=== PATIENT | female | born 1955 | race Caucasian/White ===

== ENCOUNTER 2019-07-20 06:37 | Outpatient (REF) | payer BC, SELFPAY ==
[2019-07-20 08:02] LABS: Eosinophils # 0.1 10^3/uL (0.0-0.8); Hemoglobin 13.6 g/dL (11.5-15.3); Lymphocytes # 1.4 10^3/uL (0.8-4.8); Lymphocytes % 46.7 %; Mean Corpuscular HGB Conc 33.2 g/dL (30.0-36.0); Mean Corpuscular Hemoglobin 30.9 pg (28.0-34.0); Mean Corpuscular Volume 93.2 fL (81-99); Mean Platelet Volume 9.6 fL (7.4-10.4); Monocytes # 0.3 10^3/uL (0.2-0.9); Neutrophils # 1.2 10^3/uL (1.8-7.7); Neutrophils % 40.3 %; Nucleated Red Blood Cells % 0 %; Platelet Count 208 10^3/cmm (130-400); Red Cell Distribution Width 11.8 % (12.1-15.1)
[2019-07-20 09:41] LABS: Estmated Average Glucose 123; Hemoglobin A1C 5.9 % (4.0-6.0)
[2019-07-20 11:44] LABS: Chol HDL Ratio 5.38 mg/dL (0.0-4.40); Cholesterol 280 mg/dL (0-200); Glucose 89 mg/dL (65-115); HDL Cholesterol 52 mg/dL (60-100); LDL Cholesterol Calculated 212 mg/dL (50-129); LDL HDL Ratio 4.08 RATIO (0.00-3.22); Triglycerides 82 mg/dL (0-150)
== END 2019-07-20 06:38 | disposition home or self-care (01) ==
LOC: LAB 06:37
PROVIDERS: Family Provider Family Medicine; Visit Provider Dermatology
DX: Z01.89 Encounter for other specified special examinations (principal)
CPT/HCPCS: 80061; 82947; 83036; 85025

== ENCOUNTER 2019-08-13 09:40 | Outpatient (CLI) | payer BC, SELFPAY ==
--- NOTE | 2019-08-13 09:50 | XR_ITS ---
WS: [id number] XR knee RT 3V* [id number] REASON FOR EXAM: PAIN IN RIGHT KNEE FINDINGS: The medial and lateral menisci appear to be normal. The patellofemoral articulation normal. Patella tibial space is normal. Patella seems to be in normal position. No fractures are noted in the knee. XR/XR knee RT 3V* 20209 IMPRESSION: Negative right knee for acute findings.
== END 2019-08-13 09:41 | disposition home or self-care (01) ==
LOC: RAD 09:47
PROVIDERS: Family Provider Family Medicine; PCP Family Medicine; Visit Provider Family Medicine
DX: M25.561 Pain in right knee (principal)
CPT/HCPCS: 73562

== ENCOUNTER 2020-02-22 16:18 | Observation (INO) | payer BC, SELFPAY ==
[2020-02-22 16:35] VITALS: PULSE 64; RESP 19; O2SAT 98; BMI 21.9
--- NOTE | 2020-02-22 16:49 | ED_ITS ---
Documented by User: Jorge Baltazar DO 02/26/20 06:32 HPI - Chest Pain General: Chief Complaint: Chest Pain Stated Complaint: cp Time Seen by Provider: 02/22/20 16:49 History of Present Illness: HPI narrative: 64-year-old female presents with complaint of chest pain she reports the pain in the center of her chest which she also has tingling in her arms and legs she is tachypneic when I came in the room she is complaining of myalgias throughout as well she has had nausea vomiting and diarrhea this began earlier today. She is not had any productive cough. She denies any respiratory symptoms she denies any known exposure to COVID she denies any chronic respiratory illness she has no history of coronary artery disease is not previously had an evaluation. MD complaint: chest pain Onset (ago): minute(s) Timing of current episode: episodic, increasing and still present Onset: during rest Pain location: substernal Pain radiation: right arm, left arm and other (Bilateral lower extremities) Severity: moderate Quality: heaviness Relieving factors: nothing Exacerbating factors: nothing Associated symptoms: Reports dyspnea, nausea, sense of impending doom and vomiting; Deny abdominal pain, diaphoresis, fever(s), leg edema, palpitations or syncope Treatment prior to arrival: none Review of Systems Const: Denies: fever(s) or diaphoresis ENMT: Denies: throat pain, ear or mastoid pain, nasal discharge or nasal congestion Card: Denies: palpitations or syncope Resp: Reports: dyspnea GI: Reports: nausea and vomiting; Denies: abdominal pain : Denies: flank pain, difficulty voiding, dysuria, urinary frequency or urinary urgency Skin/Breast: Denies: rash or pruritus PFSH ED PFSH: Medical History No significant past medical history Surgical History H/O foot surgery H/O tubal ligation Family History Family/Other Diabetes multiple family members including parents, siblings Social History Smoking and tobacco status: never smoked Alcohol intake: never Substance/Drug Use: never Household members: spouse Marital status: Current occupational status: employed 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 Physical Exam Const: COMMON NORMALS: no acute distress GENERAL APPEARANCE: cooperative and comfortable ORIENTATION/CONSCIOUSNESS: Yes awake, Yes oriented to person, Yes oriented to place and Yes oriented to time HENMT: COMMON NORMALS: normocephalic, atraumatic and hearing grossly normal bilaterally HEAD & SCALP: normocephalic and atraumatic Eye: COMMON NORMALS: Equal, round and reactive pupils present, EOMs intact bilaterally, conjunctivae normal and no scleral icterus CONJUNCTIVA: Yes conjunctivae normal PUPIL: Yes Equal, round and reactive pupils present Neck/C-Spine: COMMON NORMALS: full ROM, no lymphadenopathy, supple and no JVD Lymph: LYMPHATIC: no lymphadenopathy noted and no lymphedema noted Resp: COMMON NORMALS: normal respiratory effort, No retractions, No use of accessory muscles and clear to auscultation bilaterally AUSCULTATION: clear to auscultation bilaterally Cardio: COMMON NORMALS: no JVD, regular rate, regular rhythm and No murmurs present (Cardio) RATE: regular rate RHYTHM: regular rhythm GI: COMMON NORMALS: Soft to palpation and No hepatosplenomegaly present AUSCULTATION: Yes normoactive bowel sounds PALPATION: Yes Soft to palpation, No Tenderness to palpation present (GI), No Guarding due to palpation present (GI) and Yes No hepatosplenomegaly present Extremity: COMMON NORMALS: normal to inspection, capillary refill normal, no clubbing, cyanosis or edema, no calf tenderness and no pedal edema Neuro: SENSORIUM/ORIENTATION: Yes oriented to person, Yes oriented to place and Yes oriented to time Skin: COMMON NORMALS: no rashes or lesions noted GENERAL SKIN EXAM: no rashes or lesions noted Course Vital Signs: Vital signs: Vital Signs Temperature 98.4 F 02/24/20 12:16 Pulse Rate 55 L 02/24/20 12:16 Respiratory Rate 18 02/24/20 12:16 Blood Pressure 122/49 02/24/20 12:16 Pulse Oximetry 94 02/24/20 12:16 MDM - Chest Pain MDM Narrative: Medical decision making narrative: Care turned over to Dr. Hernandez at change of shift. Lab Data: Labs: Lab Results 02/22/20 02/22/20 02/22/20 Range/Units 17:07 17:07 17:07 WBC 5.6 (4.0-10.0) 10^3/ uL RBC 3.99 L (4.1-5.3) 10^6/u L Hgb 12.7 (11.5-15.3) g/dL Hct 37.2 (37.0-47.0) % MCV 93.2 (81-99) fL MCH 31.8 (28.0-34.0) pg MCHC 34.1 (30.0-36.0) g/dL RDW 11.7 L (12.1-15.1) % Plt Count 202 (130-400) 10^3/c mm MPV 10.0 (7.4-10.4) fL Neut % (Auto) 74.7 % Lymph % (Auto) 17.5 % [place] % (Auto) 6.5 % Eos % (Auto) 0.4 % Baso % (Auto) 0.7 % Neut # (Auto) 4.15 (1.8-7.7) 10^3/u L Lymph # (Auto) 1.0 (0.8-4.8) 10^3/u L [place] # (Auto) 0.4 (0.2-0.9) 10^3/u L Eos # (Auto) 0.0 (0.0-0.8) 10^3/u L Baso # (Auto) 0.0 (0.0-0.1) 10^3/u L Nucleated RBC % (a uto) 0 % Nucleated RBCs # 0.0 /100WBC Fibrinogen (174-498) mg/dL D-Dimer (0-0.59) ug/mIFE U Specimen Type Sample Site ABG pH (7.35-7.45) ABG pCO2 (35-45) mmHg ABG pO2 (80.0-100.0) mmH g ABG HCO3 (22-26) mmol/L ABG O2 Saturation ABG Base Excess (-2.0-2.0) mmol/ L Mike Test A-a O2 Gradient (5-10) mmHg Hematocrit (37-47) % Hgb O2 Saturation (95-100) % Carboxyhemoglobin (0.4-20.1) %THgb Methemoglobin (0.4-1.5) % Total Hemoglobin (12-16) g/dL Ionized Calcium (1.1-1.4) mmol/L O2 Delivery Device FiO2 % Document Specialist ID Sodium 127 L (136-145) mmol/L Potassium 4.0 (3.5-5.1) mmol/L Chloride 91 L (98-107) mmol/L Carbon Dioxide 22 (22-29) mmol/L Anion Gap 18.0 (5-19) BUN 13 (8-23) mg/dL Creatinine 0.6 (0.5-0.9) mg/dL GFR Calculation 101.0 (90-130) mL/min Glucose 133 H (65-115) mg/dL Calculated Osmolal ity 262 L (285-295) mOsm/k g Lactic Acid (0.5-2.2) mmol/L Calcium 8.8 (8.5-10.5) mg/dL Magnesium (1.7-2.3) mg/dL Ferritin 214 H (15-150) ng/mL Total Bilirubin 0.8 (0.15-1.2) mg/dL AST 24 (0-32) U/L ALT 21 (0-33) U/L Alkaline Phosphata se 65 (35-105) IU/L Lactate Dehydrogen ase 208 (135-214) U/L Creatine Kinase 109 (26-192) U/L Troponin T Baselin e 10 (0-10) ng/L Troponin T 120 Min [place] (0-10) ng/L Delta Troponin T (0-10) ABS# C-Reactive Protein 0.5 (0.0-4.9) mg/L Total Protein 7.1 (6.6-8.7) g/dL Albumin 4.6 (3.5-5.2) g/dL Globulin 2.5 (1.3-4.6) g/dL Lipase (13-60) U/L Urine Color (Yellow) Urine Appearance (CLEAR) Urine pH (5-7) Ur Specific Gravit y (1.005-1.030) Urine Protein (Negative) Urine Glucose (UA) (Normal) Urine Ketones (Negative) Urine Blood (Negative) Urine Nitrate (Negative) Urine Bilirubin (Negative) Urine Urobilinogen (Negative) mg/dL Ur Leukocyte Joan ase (Negative) Serum Ketones (Negative) SARS-CoV-2 RNA (RT -PCR) (NOT DETECTED) SARS-CoV-2 Ag (Rap id) (Negative) 02/22/20 02/22/20 02/22/20 Range/Units 17:07 17:07 17:18 WBC (4.0-10.0) 10^3/ uL RBC (4.1-5.3) 10^6/u L Hgb (11.5-15.3) g/dL Hct (37.0-47.0) % MCV (81-99) fL MCH (28.0-34.0) pg MCHC (30.0-36.0) g/dL RDW (12.1-15.1) % Plt Count (130-400) 10^3/c mm MPV (7.4-10.4) fL Neut % (Auto) % Lymph % (Auto) % [place] % (Auto) % Eos % (Auto) % Baso % (Auto) % Neut # (Auto) (1.8-7.7) 10^3/u L Lymph # (Auto) (0.8-4.8) 10^3/u L [place] # (Auto) (0.2-0.9) 10^3/u L Eos # (Auto) (0.0-0.8) 10^3/u L Baso # (Auto) (0.0-0.1) 10^3/u L Nucleated RBC % (a uto) % Nucleated RBCs # /100WBC Fibrinogen 291 (174-498) mg/dL D-Dimer 0.32 (0-0.59) ug/mIFE U Specimen Type Sample Site ABG pH (7.35-7.45) ABG pCO2 (35-45) mmHg ABG pO2 (80.0-100.0) mmH g ABG HCO3 (22-26) mmol/L ABG O2 Saturation ABG Base Excess (-2.0-2.0) mmol/ L Mike Test A-a O2 Gradient (5-10) mmHg Hematocrit (37-47) % Hgb O2 Saturation (95-100) % Carboxyhemoglobin (0.4-20.1) %THgb Methemoglobin (0.4-1.5) % Total Hemoglobin (12-16) g/dL Ionized Calcium (1.1-1.4) mmol/L O2 Delivery Device FiO2 % Document Specialist ID Sodium (136-145) mmol/L Potassium (3.5-5.1) mmol/L Chloride (98-107) mmol/L Carbon Dioxide (22-29) mmol/L Anion Gap (5-19) BUN (8-23) mg/dL Creatinine (0.5-0.9) mg/dL GFR Calculation (90-130) mL/min Glucose (65-115) mg/dL Calculated Osmolal ity (285-295) mOsm/k g Lactic Acid 1.6 (0.5-2.2) mmol/L Calcium (8.5-10.5) mg/dL Magnesium (1.7-2.3) mg/dL Ferritin (15-150) ng/mL Total Bilirubin (0.15-1.2) mg/dL AST (0-32) U/L ALT (0-33) U/L Alkaline Phosphata se (35-105) IU/L Lactate Dehydrogen ase (135-214) U/L Creatine Kinase (26-192) U/L Troponin T Baselin e (0-10) ng/L Troponin T 120 Min [place] (0-10) ng/L Delta Troponin T (0-10) ABS# C-Reactive Protein (0.0-4.9) mg/L Total Protein (6.6-8.7) g/dL Albumin (3.5-5.2) g/dL Globulin (1.3-4.6) g/dL Lipase (13-60) U/L Urine Color (Yellow) Urine Appearance (CLEAR) Urine pH (5-7) Ur Specific Gravit y (1.005-1.030) Urine Protein (Negative) Urine Glucose (UA) (Normal) Urine Ketones (Negative) Urine Blood (Negative) Urine Nitrate (Negative) Urine Bilirubin (Negative) Urine Urobilinogen (Negative) mg/dL Ur Leukocyte Joan ase (Negative) Serum Ketones (Negative) SARS-CoV-2 RNA (RT -PCR) Not detected (NOT DETECTED) SARS-CoV-2 Ag (Rap id) (Negative) 02/22/20 02/22/20 02/22/20 Range/Units 17:33 19:15 19:15 WBC (4.0-10.0) 10^3/ uL RBC (4.1-5.3) 10^6/u L Hgb (11.5-15.3) g/dL Hct (37.0-47.0) % MCV (81-99) fL MCH (28.0-34.0) pg MCHC (30.0-36.0) g/dL RDW (12.1-15.1) % Plt Count (130-400) 10^3/c mm MPV (7.4-10.4) fL Neut % (Auto) % Lymph % (Auto) % [place] % (Auto) % Eos % (Auto) % Baso % (Auto) % Neut # (Auto) (1.8-7.7) 10^3/u L Lymph # (Auto) (0.8-4.8) 10^3/u L [place] # (Auto) (0.2-0.9) 10^3/u L Eos # (Auto) (0.0-0.8) 10^3/u L Baso # (Auto) (0.0-0.1) 10^3/u L Nucleated RBC % (a uto) % Nucleated RBCs # /100WBC Fibrinogen (174-498) mg/dL D-Dimer (0-0.59) ug/mIFE U Specimen Type Arterial Sample Site Radial, right ABG pH 7.44 (7.35-7.45) ABG pCO2 34.6 L (35-45) mmHg ABG pO2 78.7 L (80.0-100.0) mmH g ABG HCO3 23.4 (22-26) mmol/L ABG O2 Saturation 97.3 ABG Base Excess -0.3 (-2.0-2.0) mmol/ L Mike Test Pos A-a O2 Gradient 3.6 L (5-10) mmHg Hematocrit 39.2 (37-47) % Hgb O2 Saturation 95.6 (95-100) % Carboxyhemoglobin 1.0 (0.4-20.1) %THgb Methemoglobin 0.8 (0.4-1.5) % Total Hemoglobin 12.8 (12-16) g/dL Ionized Calcium 1.1 (1.1-1.4) mmol/L O2 Delivery Device Room air FiO2 21.0 % Document Specialist ID Jlg Sodium 127.0 L (136-145) mmol/L Potassium 3.8 (3.5-5.1) mmol/L Chloride (98-107) mmol/L Carbon Dioxide (22-29) mmol/L Anion Gap (5-19) BUN (8-23) mg/dL Creatinine (0.5-0.9) mg/dL GFR Calculation (90-130) mL/min Glucose 117.0 H (65-115) mg/dL Calculated Osmolal ity (285-295) mOsm/k g Lactic Acid (0.5-2.2) mmol/L Calcium (8.5-10.5) mg/dL Magnesium 1.9 (1.7-2.3) mg/dL Ferritin (15-150) ng/mL Total Bilirubin (0.15-1.2) mg/dL AST (0-32) U/L ALT (0-33) U/L Alkaline Phosphata se (35-105) IU/L Lactate Dehydrogen ase (135-214) U/L Creatine Kinase (26-192) U/L Troponin T Baselin e (0-10) ng/L Troponin T 120 Min [place] 14.68 H (0-10) ng/L Delta Troponin T 4.68 (0-10) ABS# C-Reactive Protein (0.0-4.9) mg/L Total Protein (6.6-8.7) g/dL Albumin (3.5-5.2) g/dL Globulin (1.3-4.6) g/dL Lipase 37 (13-60) U/L Urine Color (Yellow) Urine Appearance (CLEAR) Urine pH (5-7) Ur Specific Gravit y (1.005-1.030) Urine Protein (Negative) Urine Glucose (UA) (Normal) Urine Ketones (Negative) Urine Blood (Negative) Urine Nitrate (Negative) Urine Bilirubin (Negative) Urine Urobilinogen (Negative) mg/dL Ur Leukocyte Joan ase (Negative) Serum Ketones Negative (Negative) SARS-CoV-2 RNA (RT -PCR) (NOT DETECTED) SARS-CoV-2 Ag (Rap id) (Negative) 02/22/20 02/22/20 Range/Units 21:50 22:31 WBC (4.0-10.0) 10^3/ uL RBC (4.1-5.3) 10^6/u L Hgb (11.5-15.3) g/dL Hct (37.0-47.0) % MCV (81-99) fL MCH (28.0-34.0) pg MCHC (30.0-36.0) g/dL RDW (12.1-15.1) % Plt Count (130-400) 10^3/c mm MPV (7.4-10.4) fL Neut % (Auto) % Lymph % (Auto) % [place] % (Auto) % Eos % (Auto) % Baso % (Auto) % Neut # (Auto) (1.8-7.7) 10^3/u L Lymph # (Auto) (0.8-4.8) 10^3/u L [place] # (Auto) (0.2-0.9) 10^3/u L Eos # (Auto) (0.0-0.8) 10^3/u L Baso # (Auto) (0.0-0.1) 10^3/u L Nucleated RBC % (a uto) % Nucleated RBCs # /100WBC Fibrinogen (174-498) mg/dL D-Dimer (0-0.59) ug/mIFE U Specimen Type Sample Site ABG pH (7.35-7.45) ABG pCO2 (35-45) mmHg ABG pO2 (80.0-100.0) mmH g ABG HCO3 (22-26) mmol/L ABG O2 Saturation ABG Base Excess (-2.0-2.0) mmol/ L Mike Test A-a O2 Gradient (5-10) mmHg Hematocrit (37-47) % Hgb O2 Saturation (95-100) % Carboxyhemoglobin (0.4-20.1) %THgb Methemoglobin (0.4-1.5) % Total Hemoglobin (12-16) g/dL Ionized Calcium (1.1-1.4) mmol/L O2 Delivery Device FiO2 % Document Specialist ID Sodium (136-145) mmol/L Potassium (3.5-5.1) mmol/L Chloride (98-107) mmol/L Carbon Dioxide (22-29) mmol/L Anion Gap (5-19) BUN (8-23) mg/dL Creatinine (0.5-0.9) mg/dL GFR Calculation (90-130) mL/min Glucose (65-115) mg/dL Calculated Osmolal ity (285-295) mOsm/k g Lactic Acid (0.5-2.2) mmol/L Calcium (8.5-10.5) mg/dL Magnesium (1.7-2.3) mg/dL Ferritin (15-150) ng/mL Total Bilirubin (0.15-1.2) mg/dL AST (0-32) U/L ALT (0-33) U/L Alkaline Phosphata se (35-105) IU/L Lactate Dehydrogen ase (135-214) U/L Creatine Kinase (26-192) U/L Troponin T Baselin e (0-10) ng/L Troponin T 120 Min [place] (0-10) ng/L Delta Troponin T (0-10) ABS# C-Reactive Protein (0.0-4.9) mg/L Total Protein (6.6-8.7) g/dL Albumin (3.5-5.2) g/dL Globulin (1.3-4.6) g/dL Lipase (13-60) U/L Urine Color Yellow (Yellow) Urine Appearance Clear (CLEAR) Urine pH 7 (5-7) Ur Specific Gravit y 1.005 (1.005-1.030) Urine Protein Neg (Negative) Urine Glucose (UA) Norm (Normal) Urine Ketones 1+ H (Negative) Urine Blood Neg (Negative) Urine Nitrate Negative (Negative) Urine Bilirubin Neg (Negative) Urine Urobilinogen Norm (Negative) mg/dL Ur Leukocyte Joan ase Negative (Negative) Serum Ketones (Negative) SARS-CoV-2 RNA (RT -PCR) (NOT DETECTED) SARS-CoV-2 Ag (Rap id) Negative (Negative) Discharge Plan Discharge Patient Disposition: Placed in Observation Admit Provider: Nidia Arellano Clinical Impression: Chest pain, Dehydration, Vomiting, Diarrhea Condition: Stable Referrals: Nirmala Whiting MD [Primary Care Provider] - 4-7 days (Please contact Dr. Nirmala Whiting office tomorrow to make an appointment to be seen within 4-7 days. ) Discharge Diet: Usual diet Discharge Activity: Resume usual activity Patient Instructions: Dehydration - Adult, Chest Pain (DC) Discharge Date/Time: 02/23/20 00:30 Sign Out Sign Out Data: Patient Sign Out occurred on 02/22/20 at 18:38. Patient's care was discussed, and care was transferred from to Lashonda Martinez. Coding Level of Care Code ED Mannequin Refinisher for Chg Fwd Exam Comprehensive Documented by User: Lashonda Martinez 02/22/20 23:23 HPI - Chest Pain General: Chief Complaint: Chest Pain Stated Complaint: cp Time Seen by Provider: 02/22/20 16:49 PFSH ED PFSH: Medical History No significant past medical history Surgical History H/O foot surgery H/O tubal ligation Family History Family/Other Diabetes multiple family members including parents, siblings Social History Smoking and tobacco status: never smoked Alcohol intake: never Substance/Drug Use: never Household members: spouse Marital status: Current occupational status: employed Current occupation: [employer] Vital Signs: Vital signs: Vital Signs Temperature 98.4 F 02/24/20 12:16 Pulse Rate 55 L 02/24/20 12:16 Respiratory Rate 18 02/24/20 12:16 Blood Pressure 122/49 02/24/20 12:16 Pulse Oximetry 94 02/24/20 12:16 MDM - Chest Pain MDM Narrative: Medical decision making narrative: 194 -case inherited by me at change of shift from Dr. Baltazar. Please see his note for his history, physical exam and medical decision-making notes. Currently the patient still says she feels sick. She states that she started today with chest pain described as a pressure in her chest at 3 PM and it is been constant since. She had tingling in her arms and legs because she began to get sick and vomited numerous times. She states that she is vomited too many times to count and also had diarrhea too many times to count. She denies any abdominal pain other than it being sore from vomiting. She denies any fevers or chills. Patient states that she just aches and hurts all over. She denies any history of heart problems, hypertension, diabetes or other cardiac related issues. She has no history of DVT/PE. Patient is a non-smoker no family history of heart problems. Patient's heart score is a 2. Currently the patient is in no respiratory distress, her heart is regular and her lungs are clear. Her abdomen is soft and nontender to palpation. Neurologically she is intact without any deficits. 2321 -Ms. Moore is a nice 64-year-old female comes in for nausea, vomiting and diarrhea along with chest pain. She states she is had numerous episodes of vomiting diarrhea. This been no blood in her stools or blood in her vomit. Patient is a constant chest pain but her troponins have trended upward slightly. Her EKG is unchanging. At this time she feels severely weak and dehydrated. Because of her continued symptoms I will go and admit her to the hospital. We will give her aspirin but as her EKG shows no active pain and the pain is been constant for well over 6 hours now will wait to see what her last troponin comes back with but I see no evidence of acute STEMI at this time. Lab Data: Attestation: I reviewed the patient's lab results. Labs: Lab Results 02/22/20 02/22/20 02/22/20 Range/Units 17:07 17:07 17:07 WBC 5.6 (4.0-10.0) 10^3/ uL RBC 3.99 L (4.1-5.3) 10^6/u L Hgb 12.7 (11.5-15.3) g/dL Hct 37.2 (37.0-47.0) % MCV 93.2 (81-99) fL MCH 31.8 (28.0-34.0) pg MCHC 34.1 (30.0-36.0) g/dL RDW 11.7 L (12.1-15.1) % Plt Count 202 (130-400) 10^3/c mm MPV 10.0 (7.4-10.4) fL Neut % (Auto) 74.7 % Lymph % (Auto) 17.5 % [place] % (Auto) 6.5 % Eos % (Auto) 0.4 % Baso % (Auto) 0.7 % Neut # (Auto) 4.15 (1.8-7.7) 10^3/u L Lymph # (Auto) 1.0 (0.8-4.8) 10^3/u L [place] # (Auto) 0.4 (0.2-0.9) 10^3/u L Eos # (Auto) 0.0 (0.0-0.8) 10^3/u L Baso # (Auto) 0.0 (0.0-0.1) 10^3/u L Nucleated RBC % (a uto) 0 % Nucleated RBCs # 0.0 /100WBC Fibrinogen (174-498) mg/dL D-Dimer (0-0.59) ug/mIFE U Specimen Type Sample Site ABG pH (7.35-7.45) ABG pCO2 (35-45) mmHg ABG pO2 (80.0-100.0) mmH g ABG HCO3 (22-26) mmol/L ABG O2 Saturation ABG Base Excess (-2.0-2.0) mmol/ L Mike Test A-a O2 Gradient (5-10) mmHg Hematocrit (37-47) % Hgb O2 Saturation (95-100) % Carboxyhemoglobin (0.4-20.1) %THgb Methemoglobin (0.4-1.5) % Total Hemoglobin (12-16) g/dL Ionized Calcium (1.1-1.4) mmol/L O2 Delivery Device FiO2 % Document Specialist ID Sodium 127 L (136-145) mmol/L Potassium 4.0 (3.5-5.1) mmol/L Chloride 91 L (98-107) mmol/L Carbon Dioxide 22 (22-29) mmol/L Anion Gap 18.0 (5-19) BUN 13 (8-23) mg/dL Creatinine 0.6 (0.5-0.9) mg/dL GFR Calculation 101.0 (90-130) mL/min Glucose 133 H (65-115) mg/dL Calculated Osmolal ity 262 L (285-295) mOsm/k g Lactic Acid (0.5-2.2) mmol/L Calcium 8.8 (8.5-10.5) mg/dL Magnesium (1.7-2.3) mg/dL Ferritin 214 H (15-150) ng/mL Total Bilirubin 0.8 (0.15-1.2) mg/dL AST 24 (0-32) U/L ALT 21 (0-33) U/L Alkaline Phosphata se 65 (35-105) IU/L Lactate Dehydrogen ase 208 (135-214) U/L Creatine Kinase 109 (26-192) U/L Troponin T Baselin e 10 (0-10) ng/L Troponin T 120 Min [place] (0-10) ng/L Delta Troponin T (0-10) ABS# C-Reactive Protein 0.5 (0.0-4.9) mg/L Total Protein 7.1 (6.6-8.7) g/dL Albumin 4.6 (3.5-5.2) g/dL Globulin 2.5 (1.3-4.6) g/dL Lipase (13-60) U/L Urine Color (Yellow) Urine Appearance (CLEAR) Urine pH (5-7) Ur Specific Gravit y (1.005-1.030) Urine Protein (Negative) Urine Glucose (UA) (Normal) Urine Ketones (Negative) Urine Blood (Negative) Urine Nitrate (Negative) Urine Bilirubin (Negative) Urine Urobilinogen (Negative) mg/dL Ur Leukocyte Joan ase (Negative) Serum Ketones (Negative) SARS-CoV-2 RNA (RT -PCR) (NOT DETECTED) SARS-CoV-2 Ag (Rap id) (Negative) 02/22/20 02/22/20 02/22/20 Range/Units 17:07 17:07 17:18 WBC (4.0-10.0) 10^3/ uL RBC (4.1-5.3) 10^6/u L Hgb (11.5-15.3) g/dL Hct (37.0-47.0) % MCV (81-99) fL MCH (28.0-34.0) pg MCHC (30.0-36.0) g/dL RDW (12.1-15.1) % Plt Count (130-400) 10^3/c mm MPV (7.4-10.4) fL Neut % (Auto) % Lymph % (Auto) % [place] % (Auto) % Eos % (Auto) % Baso % (Auto) % Neut # (Auto) (1.8-7.7) 10^3/u L Lymph # (Auto) (0.8-4.8) 10^3/u L [place] # (Auto) (0.2-0.9) 10^3/u L Eos # (Auto) (0.0-0.8) 10^3/u L Baso # (Auto) (0.0-0.1) 10^3/u L Nucleated RBC % (a uto) % Nucleated RBCs # /100WBC Fibrinogen 291 (174-498) mg/dL D-Dimer 0.32 (0-0.59) ug/mIFE U Specimen Type Sample Site ABG pH (7.35-7.45) ABG pCO2 (35-45) mmHg ABG pO2 (80.0-100.0) mmH g ABG HCO3 (22-26) mmol/L ABG O2 Saturation ABG Base Excess (-2.0-2.0) mmol/ L Mike Test A-a O2 Gradient (5-10) mmHg Hematocrit (37-47) % Hgb O2 Saturation (95-100) % Carboxyhemoglobin (0.4-20.1) %THgb Methemoglobin (0.4-1.5) % Total Hemoglobin (12-16) g/dL Ionized Calcium (1.1-1.4) mmol/L O2 Delivery Device FiO2 % Document Specialist ID Sodium (136-145) mmol/L Potassium (3.5-5.1) mmol/L Chloride (98-107) mmol/L Carbon Dioxide (22-29) mmol/L Anion Gap (5-19) BUN (8-23) mg/dL Creatinine (0.5-0.9) mg/dL GFR Calculation (90-130) mL/min Glucose (65-115) mg/dL Calculated Osmolal ity (285-295) mOsm/k g Lactic Acid 1.6 (0.5-2.2) mmol/L Calcium (8.5-10.5) mg/dL Magnesium (1.7-2.3) mg/dL Ferritin (15-150) ng/mL Total Bilirubin (0.15-1.2) mg/dL AST (0-32) U/L ALT (0-33) U/L Alkaline Phosphata se (35-105) IU/L Lactate Dehydrogen ase (135-214) U/L Creatine Kinase (26-192) U/L Troponin T Baselin e (0-10) ng/L Troponin T 120 Min [place] (0-10) ng/L Delta Troponin T (0-10) ABS# C-Reactive Protein (0.0-4.9) mg/L Total Protein (6.6-8.7) g/dL Albumin (3.5-5.2) g/dL Globulin (1.3-4.6) g/dL Lipase (13-60) U/L Urine Color (Yellow) Urine Appearance (CLEAR) Urine pH (5-7) Ur Specific Gravit y (1.005-1.030) Urine Protein (Negative) Urine Glucose (UA) (Normal) Urine Ketones (Negative) Urine Blood (Negative) Urine Nitrate (Negative) Urine Bilirubin (Negative) Urine Urobilinogen (Negative) mg/dL Ur Leukocyte [place] (Negative) Serum Ketones (Negative) SARS-CoV-2 RNA (RT -PCR) Not detected (NOT DETECTED) SARS-CoV-2 Ag (Rap id) (Negative) 02/22/20 02/22/20 02/22/20 Range/Units 17:33 19:15 19:15 WBC (4.0-10.0) 10^3/ uL RBC (4.1-5.3) 10^6/u L Hgb (11.5-15.3) g/dL Hct (37.0-47.0) % MCV (81-99) fL MCH (28.0-34.0) pg MCHC (30.0-36.0) g/dL RDW (12.1-15.1) % Plt Count (130-400) 10^3/c mm MPV (7.4-10.4) fL Neut % (Auto) % Lymph % (Auto) % [place] % (Auto) % Eos % (Auto) % Baso % (Auto) % Neut # (Auto) (1.8-7.7) 10^3/u L Lymph # (Auto) (0.8-4.8) 10^3/u L [place] # (Auto) (0.2-0.9) 10^3/u L Eos # (Auto) (0.0-0.8) 10^3/u L Baso # (Auto) (0.0-0.1) 10^3/u L Nucleated RBC % (a uto) % Nucleated RBCs # /100WBC Fibrinogen (174-498) mg/dL D-Dimer (0-0.59) ug/mIFE U Specimen Type Arterial Sample Site Radial, right ABG pH 7.44 (7.35-7.45) ABG pCO2 34.6 L (35-45) mmHg ABG pO2 78.7 L (80.0-100.0) mmH g ABG HCO3 23.4 (22-26) mmol/L ABG O2 Saturation 97.3 ABG Base Excess -0.3 (-2.0-2.0) mmol/ L Mike Test Pos A-a O2 Gradient 3.6 L (5-10) mmHg Hematocrit 39.2 (37-47) % Hgb O2 Saturation 95.6 (95-100) % Carboxyhemoglobin 1.0 (0.4-20.1) %THgb Methemoglobin 0.8 (0.4-1.5) % Total Hemoglobin 12.8 (12-16) g/dL Ionized Calcium 1.1 (1.1-1.4) mmol/L O2 Delivery Device Room air FiO2 21.0 % Document Specialist ID [id number] Sodium 127.0 L (136-145) mmol/L Potassium 3.8 (3.5-5.1) mmol/L Chloride (98-107) mmol/L Carbon Dioxide (22-29) mmol/L Anion Gap (5-19) BUN (8-23) mg/dL Creatinine (0.5-0.9) mg/dL GFR Calculation (90-130) mL/min Glucose 117.0 H (65-115) mg/dL Calculated Osmolal ity (285-295) mOsm/k g Lactic Acid (0.5-2.2) mmol/L Calcium (8.5-10.5) mg/dL Magnesium 1.9 (1.7-2.3) mg/dL Ferritin (15-150) ng/mL Total Bilirubin (0.15-1.2) mg/dL AST (0-32) U/L ALT (0-33) U/L Alkaline Phosphata se (35-105) IU/L Lactate Dehydrogen ase (135-214) U/L Creatine Kinase (26-192) U/L Troponin T Baselin e (0-10) ng/L Troponin T 120 Min [place] 14.68 H (0-10) ng/L Delta Troponin T 4.68 (0-10) ABS# C-Reactive Protein (0.0-4.9) mg/L Total Protein (6.6-8.7) g/dL Albumin (3.5-5.2) g/dL Globulin (1.3-4.6) g/dL Lipase 37 (13-60) U/L Urine Color (Yellow) Urine Appearance (CLEAR) Urine pH (5-7) Ur Specific Gravit y (1.005-1.030) Urine Protein (Negative) Urine Glucose (UA) (Normal) Urine Ketones (Negative) Urine Blood (Negative) Urine Nitrate (Negative) Urine Bilirubin (Negative) Urine Urobilinogen (Negative) mg/dL Ur Leukocyte Joan ase (Negative) Serum Ketones Negative (Negative) SARS-CoV-2 RNA (RT -PCR) (NOT DETECTED) SARS-CoV-2 Ag (Rap id) (Negative) 02/22/20 02/22/20 Range/Units 21:50 22:31 WBC (4.0-10.0) 10^3/ uL RBC (4.1-5.3) 10^6/u L Hgb (11.5-15.3) g/dL Hct (37.0-47.0) % MCV (81-99) fL MCH (28.0-34.0) pg MCHC (30.0-36.0) g/dL RDW (12.1-15.1) % Plt Count (130-400) 10^3/c mm MPV (7.4-10.4) fL Neut % (Auto) % Lymph % (Auto) % [place] % (Auto) % Eos % (Auto) % Baso % (Auto) % Neut # (Auto) (1.8-7.7) 10^3/u L Lymph # (Auto) (0.8-4.8) 10^3/u L [place] # (Auto) (0.2-0.9) 10^3/u L Eos # (Auto) (0.0-0.8) 10^3/u L Baso # (Auto) (0.0-0.1) 10^3/u L Nucleated RBC % (a uto) % Nucleated RBCs # /100WBC Fibrinogen (174-498) mg/dL D-Dimer (0-0.59) ug/mIFE U Specimen Type Sample Site ABG pH (7.35-7.45) ABG pCO2 (35-45) mmHg ABG pO2 (80.0-100.0) mmH g ABG HCO3 (22-26) mmol/L ABG O2 Saturation ABG Base Excess (-2.0-2.0) mmol/ L Mike Test A-a O2 Gradient (5-10) mmHg Hematocrit (37-47) % Hgb O2 Saturation (95-100) % Carboxyhemoglobin (0.4-20.1) %THgb Methemoglobin (0.4-1.5) % Total Hemoglobin (12-16) g/dL Ionized Calcium (1.1-1.4) mmol/L O2 Delivery Device FiO2 % Document Specialist ID Sodium (136-145) mmol/L Potassium (3.5-5.1) mmol/L Chloride (98-107) mmol/L Carbon Dioxide (22-29) mmol/L Anion Gap (5-19) BUN (8-23) mg/dL Creatinine (0.5-0.9) mg/dL GFR Calculation (90-130) mL/min Glucose (65-115) mg/dL Calculated Osmolal ity (285-295) mOsm/k g Lactic Acid (0.5-2.2) mmol/L Calcium (8.5-10.5) mg/dL Magnesium (1.7-2.3) mg/dL Ferritin (15-150) ng/mL Total Bilirubin (0.15-1.2) mg/dL AST (0-32) U/L ALT (0-33) U/L Alkaline Phosphata se (35-105) IU/L Lactate Dehydrogen ase (135-214) U/L Creatine Kinase (26-192) U/L Troponin T Baselin e (0-10) ng/L Troponin T 120 Min [place] (0-10) ng/L Delta Troponin T (0-10) ABS# C-Reactive Protein (0.0-4.9) mg/L Total Protein (6.6-8.7) g/dL Albumin (3.5-5.2) g/dL Globulin (1.3-4.6) g/dL Lipase (13-60) U/L Urine Color Yellow (Yellow) Urine Appearance Clear (CLEAR) Urine pH 7 (5-7) Ur Specific Gravit y 1.005 (1.005-1.030) Urine Protein Neg (Negative) Urine Glucose (UA) Norm (Normal) Urine Ketones 1+ H (Negative) Urine Blood Neg (Negative) Urine Nitrate Negative (Negative) Urine Bilirubin Neg (Negative) Urine Urobilinogen Norm (Negative) mg/dL Ur Leukocyte Joan ase Negative (Negative) Serum Ketones (Negative) SARS-CoV-2 RNA (RT -PCR) (NOT DETECTED) SARS-CoV-2 Ag (Rap id) Negative (Negative) Imaging Data^: CXR: Attestation: I personally reviewed and interpreted this imaging study as follows: My impression: No acute cardiopulmonary findings. EKG Data^: EKG 1: Attestation: I personally reviewed and interpreted this EKG as follows: EKG interpretation date: 02/22/20 EKG interpretation time: 16:41 Interpretation: Normal sinus rhythm at 63 beats a minute, normal axis, no blocks, nonspecific ST-T wave changes. EKG 2: Attestation: I personally reviewed and interpreted this EKG as follows: EKG interpretation date: 02/22/20 EKG interpretation time: 20:36 Interpretation: Sinus bradycardia at 54 beats a minute, no blocks, normal intervals, nonspecific ST and T wave changes. EKG 3: Attestation: I personally reviewed and interpreted this EKG as follows: EKG interpretation date: 02/22/20 EKG interpretation time: 23:13 Interpretation: Sinus bradycardia at 50 beats a minute, nonspecific ST-T wave changes, left axis deviation, no other acute focal abnormalities. Discharge Plan Discharge Patient Disposition: Placed in Observation Admit Provider: Nidia Arellano Clinical Impression: Chest pain, Dehydration, Vomiting, Diarrhea Condition: Stable Referrals: Nirmala Whiting MD [Primary Care Provider] - 4-7 days (Please contact Dr. Nirmala Whiting office tomorrow to make an appointment to be seen within 4-7 days. ) Discharge Diet: Usual diet Discharge Activity: Resume usual activity Patient Instructions: Dehydration - Adult, Chest Pain (DC) Discharge Date/Time: 02/23/20 00:30 Sign Out Sign Out Data: Patient Sign Out occurred on 02/22/20 at 18:38. Patient's care was discussed, and care was transferred from to Lashonda Martinez. Coding Level of Care Code ED Mannequin Refinisher for Natachag Fwd Exam Comprehensive
--- NOTE | 2020-02-22 16:50 | XRR_ITS ---
PROCEDURE INFORMATION: Exam: XR Chest, 1 View Exam date and time: 02/22/2020 5:18 PM Age: 64 years old Clinical indication: Chest pain TECHNIQUE: Imaging protocol: XR of the chest Views: 1 view. COMPARISON: CR Chest 1 [place] [id number] 05/17/2013 12:14 PM FINDINGS: Lungs: The lungs are symmetrically expanded. No focal consolidation. No edema. Pleural space: Unremarkable. No evidence of pleural effusion or pneumothorax. Heart/Mediastinum: Unremarkable. No cardiomegaly. Bones/joints: Unremarkable. XR/XR chest 1V portable [id number] IMPRESSION: No acute radiographic findings.
[2020-02-22 17:15] LABS: Basophils % 0.7 %; Eosinophils % 0.4 %; Hematocrit 37.2 % (37.0-47.0); Hemoglobin 12.7 g/dL (11.5-15.3); Lymphocytes % 17.5 %; Mean Corpuscular HGB Conc 34.1 g/dL (30.0-36.0); Mean Corpuscular Hemoglobin 31.8 pg (28.0-34.0); Mean Corpuscular Volume 93.2 fL (81-99); Monocytes # 0.4 10^3/uL (0.2-0.9); Monocytes % 6.5 %; Neutrophils # 4.15 10^3/uL (1.8-7.7); Neutrophils % 74.7 %; Nucleated Red Blood Cells % 0 %; Platelet Count 202 10^3/cmm (130-400); Red Blood Count 3.99 10^6/uL (4.1-5.3); Red Cell Distribution Width 11.7 % (12.1-15.1); White Blood Count 5.6 10^3/uL (4.0-10.0)
[2020-02-22 17:17] VITALS: BP 143/71; PULSE 59; RESP 18; O2SAT 97
[2020-02-22 17:30] LABS: Fibrinogen 291 mg/dL (174-498)
[2020-02-22 17:33] LABS: D Dimer 0.32 ug/mIFEU (0-0.59)
[2020-02-22 17:34] LABS: Lactic Sepsis W/Reflex 1.6 mmol/L (0.5-2.2)
[2020-02-22 17:35] VITALS: BP 146/60; PULSE 63; RESP 18; O2SAT 95
[2020-02-22 17:35] LABS: Alanine Aminotransferase 21 U/L (0-33); Albumin Level 4.6 g/dL (3.5-5.2); Alkaline Phosphatase 65 IU/L (35-105); Aspartate Amino Transferase 24 U/L (0-32); Blood Urea Nitrogen 13 mg/dL (8-23); C Reactive Protein 0.5 mg/L (0.0-4.9); Calcium 8.8 mg/dL (8.5-10.5); Carbon Dioxide 22 mmol/L (22-29); Chloride 91 mmol/L (98-107); Creatine Phosphokinase 109 U/L (26-192); Ferritin 214 ng/mL (15-150); Globulin 2.5 g/dL (1.3-4.6); Glucose 133 mg/dL (65-115); Lactate Dehydrogenase 208 U/L (135-214); Osmolality Calculated 262 mOsm/kg (285-295); Sodium 127 mmol/L (136-145); Total Bilirubin 0.8 mg/dL (0.15-1.2); Total Protein 7.1 g/dL (6.6-8.7)
[2020-02-22 17:37] LABS: Troponin(5th) Baseline 10 ng/L (0-10)
[2020-02-22 17:46] LABS: ABG PCO2 34.6 mmHg (35-45); ABG PH Result 7.44 (7.35-7.45); Alveolar-Arterial Oxygen Gradi 3.6 mmHg (5-10); Arterial Blood Gas Hematocrit 39.2 % (37-47); Base Excess ABG -0.3 mmol/L (-2.0-2.0); Blood Gas Allen Test Pos; Blood Gas Sample Site Radial, right; Blood Gas Sample Type Arterial; HCO3 ABG 23.4 mmol/L (22-26); HGB O2 Sat 95.6 % (95-100); Ionized Calcium Level - ABG 1.1 mmol/L (1.1-1.4); Methemoglobin 0.8 % (0.4-1.5); Oxygen Device ROOM AIR; Oxygen Saturation ABG 97.3; PO2 ABG 78.7 mmHg (80.0-100.0); Potassium Level - ABG 3.8 mmol/L (3.5-5.0); Total Hemoglobin 12.8 g/dL (12-16)
--- NOTE | 2020-02-22 18:50 | ECG_ITS ---
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 Measurements Intervals [place] Rate: 54 P: 2 UT: 191 QRS: -3 QRSD: 94 T: 65 QT: 473 QTc: 449 Interpretive Statements SINUS BRADYCARDIA POSSIBLE ANTERIOR MYOCARDIAL INFARCTION , PROBABLY OLD [30 ms Q WAVE IN V3/V4, OR R < 0.2 mV IN V4] No previous ECG available for comparison Electronically Signed On 02-23-2020 16:22:00 CDT by Noe Mcwilliams M.D. [email or web address]/store/OM/[id number]
[2020-02-22 19:47] LABS: Troponin 5 2HR 14.68 ng/L (0-10); Troponin 5 2HR Delta 4.68 ABS# (0-10)
[2020-02-22 20:44] LABS: Ketone (Acetest) Serum Negative (Negative)
--- NOTE | 2020-02-22 20:48 | PC.NURSE ---
EKG done at 2038 and show to ER doctor
[2020-02-22 20:51] VITALS: PULSE 54; RESP 16; O2SAT 95
[2020-02-22 21:06] LABS: Lipase 37 U/L (13-60); Magnesium 1.9 mg/dL (1.7-2.3)
--- NOTE | 2020-02-22 21:24 | PC.NURSE ---
spoke with pt family at approx 1929. and again at 2119
[2020-02-22] MEDS: sodium chloride 0.9% 1,000 ML 999 ML IV (21:35)
[2020-02-22 21:36] VITALS: RESP 16
[2020-02-22] MEDS: dicyclomine 20 mg Tablet PO (21:36)
[2020-02-22] MEDS: morphine 4 mg/mL SDV 1 mL IVP (21:36)
[2020-02-22] MEDS: ondansetron 2 mg/ML SDV 2 mL 4 MG IVP (21:37)
[2020-02-22 21:49] VITALS: BP 119/71; BP 135/66; BP 143/79; PULSE 54; PULSE 60; PULSE 71
[2020-02-22 22:05] LABS: Add Urine Microscopic? NO
[2020-02-22 22:14] LABS: Bilirubin Urine Neg (Negative); Blood Urine Neg (Negative); Glucose Urine UA Norm (Normal); Ketones Urine 1+ (Negative); Leukocyte Esterase Urine Negative (Negative); Nitrate Urine Negative (Negative); Protein Urine Neg (Negative); Specific Gravity, Urine 1.005 (1.005-1.030); Urine Appearance Clear (CLEAR); Urine Color Yellow (Yellow); Urobilinogen Urine Norm (Negative); pH Urine 7 (5-7)
--- NOTE | 2020-02-22 22:50 | ECG_ITS ---
[facility] Test Date: 2020-02-22 Pat Name: Ignacia Moore Department: Room: Gender: Female Quantitative Equity Head: : 1955 Requested By: Jorge Wells Order Number: [id number] Rukhsana MD: Noe Mcwilliams M.D. Measurements Intervals [place] Rate: 50 P: 47 TX: 197 QRS: -13 QRSD: 94 T: 69 QT: 487 QTc: 447 Interpretive Statements SINUS BRADYCARDIA POSSIBLE ANTERIOR MYOCARDIAL INFARCTION , PROBABLY OLD [30 ms Q WAVE IN V3/V4, OR R < 0.2 mV IN V4] Compared to ECG 02/22/2020 20:36:29 No significant changes Electronically Signed On 02-23-2020 16:22:20 CDT by Noe Mcwilliams M.D. [email or web address] hospitalChoose [facility].[employer]/store/OM/[id number]
[2020-02-22 22:56] LABS: SARS Covid-2 Antigen Negative (Negative)
--- NOTE | 2020-02-22 23:16 | PC.NURSE ---
EKG done at 2315 and shown to ER doctor
[2020-02-23] VITALS (7 sets, daily range): BP systolic 99–118; BP diastolic 58–72; PULSE 50–87; RESP 16–20; TEMP 36.7–37; O2SAT 93–97
--- NOTE | 2020-02-23 00:10 | P.HP_ITS ---
Providers/Chief Complaint Admitting Physician: Nidia Arellano MD Primary Care Provider: Nirmala Whiting MD Chief Complaint: cp History of Present Illness Ignacia Moore is a 64 year old female with no significant PMHx presents for evaluation of repeated episodes of nausea, vomiting, diarrhea since earlier this afternoon. She was scheduled to have some labs done as part of routine for life insurance policy but then had some difficulty providing a urine sample despite drinking lots of water. Shortly after she started to feel unwell with noted nausea, repeated episodes of vomiting and diarrhea. She did not note any blood in her stool prior to the onset of the symptoms was otherwise in her usual state of health. She has had some chills but denies fever, and has had minimal oral intake today. 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 She does not take any medications routinely. Work-up here shows normal CBC, mild hyponatremia with a sodium of 127, normal renal function, lactic acid of 1.6, ABG with minimal hypoxia negative urinalysis, rapid COVID test is negative. She received some IV fluid hydration and antiemetics. She has had some nausea but no emesis since arrival in the ER. Due to noted clinical dehydration she will require further IV fluid hydration hence need for admission. Of note she reportedly had some episodes of chest pain during the aforementioned events. Review of Systems Const: Reports: chills, change in appetite (decreased appetite) and fatigue; Denies: fever(s) Eyes: Denies: change in vision ENMT: Reports: dry mouth Card: Reports: chest pain; Denies: swelling of feet/ankles or lightheadedness Resp: Denies: dyspnea, productive cough or non-productive cough GI: Reports: nausea, vomiting, diarrhea and bloating; Denies: abdominal pain, hematemesis or hematochezia : Denies: difficulty voiding, dysuria or hematuria Musc: Denies: back pain Skin/Breast: Denies: rash Neuro: Reports: weakness in extremities; Denies: numbness in extremities Psych: Denies: anxiety Medications/Allergies Allergies Allergy/AdvReac Type Severity Reaction Status Date / Time No Known Allergies Allergy Verified 02/22/20 18:22 PFSH Acute PFSH: Medical History (Updated 02/23/20 @ 00:12 by Nidia Arellano MD) No significant past medical history Surgical History (Updated 02/23/20 @ 00:12 by Nidia Arellano MD) H/O foot surgery H/O tubal ligation Family History (Updated 02/23/20 @ 00:12 by Nidia Arellano MD) Family/Other Diabetes multiple family members including parents, siblings Social History (Updated 02/23/20 @ 00:13 by Nidia Arellano MD) Smoking and tobacco status: never smoked Alcohol intake: never Substance/Drug Use: never Household members: spouse Marital status: Current occupational status: employed 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 Vitals/I&O/Wt Last Vital Signs Pulse 54 L 02/22/20 21:49 Resp 16 02/22/20 21:36 BP 135/66 02/22/20 21:49 Pulse Ox 95 02/22/20 20:51 Weight last 48 hrs Weight 63.503 kg Physical Exam Const: COMMON NORMALS: no acute distress, patient oriented x3 and alert GE NERAL APPEARANCE: cooperative and comfortable ORIENTATION/CONSCIOUSNESS: Yes awake OTHER: -Appears fatigued HENMT: COMMON NORMALS: normocephalic, atraumatic and hearing grossly normal bilaterally HEAD & SCALP: normocephalic and atraumatic MOUTH: moist mucous membranes abnormal Details: parched Eye: COMMON NORMALS: Equal, round and reactive pupils present, EOMs intact bilaterally and conjunctivae normal CONJUNCTIVA: Yes conjunctivae normal PUPIL: Yes Equal, round and reactive pupils present Neck/C-Spine: COMMON NORMALS: full ROM GENERAL: Yes normal visual inspection and Yes trachea midline Resp: COMMON NORMALS: normal respiratory effort, No retractions, No use of accessory muscles and clear to auscultation bilaterally EFFORT & INSPECTION: Yes able to speak in complete sentences, Yes symmetric chest movement and No tachypneic AUSCULTATION: clear to auscultation bilaterally Cardio: COMMON NORMALS: regular rhythm, S1 normal heart sound present, S2 normal heart sound present and No murmurs present (Cardio) RATE: bradycardic RHYTHM: regular rhythm HEART SOUNDS: S1 normal heart sound present and S2 normal heart sound present GI: COMMON NORMALS: Normal to inspection, nondistended, normoactive bowel sounds present, Soft to palpation and non-tender PALPATION: Yes Soft to palpation Extremity: COMMON NORMALS: normal to inspection, full ROM and no clubbing, cyanosis or edema; negative for no pedal edema Neuro: COMMON NORMALS: patient oriented x3, moves all extremities, no focal motor deficits and no sensory deficits noted SENSORIUM/ORIENTATION: Yes alert Psych: COMMON NORMALS: mental status grossly normal, Normal thought process present, cooperative, normal affect and speech normal SPEECH: Yes normal speech THOUGHT PROCESS: Normal thought process present Skin: COMMON NORMALS: no rashes or lesions noted, no jaundice, no petechiae and no mottling GENERAL SKIN EXAM: no rashes or lesions noted Data : 02/23/20 02:36 02/23/20 02:36 A&P Assessment and plan (1) Dehydration: -Secondary to noted multiple episodes of nausea, vomiting, diarrhea today. Unclear what triggered gastroenteritis -IV fluid hydration -Clear liquid diet for now and advance diet as tolerated -Afebrile, no leukocytosis, normal lactic acid, normal lipase, normal LFTs -Negative urinalysis -Order stool studies if persistent diarrhea -rapid COVID testing negative, PCR pending; isolation precautions -noted hyponatremia (Na-127). Status: Acute (2) Chest pain: -Seems atypical from presentation -Troponins with noted flat trend, no significant delta -Telemetry monitoring, monitor vital signs -TAMIA Status: Acute Qualifiers: Chest pain type: unspecified Qualified Code(s): R07.9 - Chest pain, unspecified Additional A&P Information -GI ppx with PPI -low risk for DVT -Dispo: home -Code status: FULL code Attestations Medical Necessity Statement*: Ignacia Moore's hospital stay will require less than 2 midnights for management of dehydration secondary to nausea, vomiting, diarrhea as well as need for chest pain rule out ACS work-up. Time Spent in Patient Care: Greater than 35 minutes (>than 50% of time spent in counselling and/or direct pt care on unit) . Coding Level of Care Code Acute Configuration Management Consultant for g Fwd Exam Comprehensive Diagnoses Dehydration E86.0 Chest pain R07.9 Chest pain type: unspecified
--- NOTE | 2020-02-23 01:12 | PC.NURSE ---
Pt admitted to floor. Admission assessment completed, physical assessment completed, no needs voiced at this time. Will continue to monitor.
[2020-02-23 03:10] LABS: Basophils % 0.5 %; Eosinophils % 0.7 %; Hematocrit 39.6 % (37.0-47.0); Hemoglobin 13.1 g/dL (11.5-15.3); Lymphocytes # 1.2 10^3/uL (0.8-4.8); Lymphocytes % 29.5 %; Mean Corpuscular HGB Conc 33.1 g/dL (30.0-36.0); Mean Corpuscular Hemoglobin 31.9 pg (28.0-34.0); Mean Corpuscular Volume 96.4 fL (81-99); Mean Platelet Volume 10.5 fL (7.4-10.4); Monocytes # 0.4 10^3/uL (0.2-0.9); Monocytes % 8.9 %; Neutrophils # 2.42 10^3/uL (1.8-7.7); Neutrophils % 60.2 %; Nucleated Red Blood Cells % 0 %; Platelet Count 136 10^3/cmm (130-400); Red Blood Count 4.11 10^6/uL (4.1-5.3); Red Cell Distribution Width 11.8 % (12.1-15.1)
[2020-02-23 03:36] LABS: Blood Urea Nitrogen 9 mg/dL (8-23); Calcium 9.1 mg/dL (8.5-10.5); Carbon Dioxide 24 mmol/L (22-29); Chloride 104 mmol/L (98-107); Glomerular Filtration Rate 124.6 mL/min (90-130); Glucose 99 mg/dL (65-115); Osmolality Calculated 280 mOsm/kg (285-295); Sodium 137 mmol/L (136-145)
[2020-02-23 03:39] LABS: Troponin 5 6HR 14.99 ng/L (0-10)
[2020-02-23 03:50] LABS: Slide Review Slide Review Perform
[2020-02-23] MEDS: pantoprazole DR 40 mg Tablet PO (11:25)
--- NOTE | 2020-02-23 12:49 | P.PN_ITS ---
Subjective Subjective: Interval history: No acute events overmight. Nausea and vomiting has stopped. We have started her on clear liquids and the plan is to advance the diet as tolerated. Vitals and labs have been stable. Medications: Reviewed: Yes Vitals/I&O/Wt Last Vital Signs Temp 98.3 F 02/23/20 12:00 Pulse 61 02/23/20 12:00 Resp 18 02/23/20 12:00 BP 113/61 02/23/20 12:00 Pulse Ox 93 02/23/20 12:00 02/22/20 02/23/20 02/23/20 22:59 06:59 14:59 Intake Total 200 / 200 Balance 200 / 200 Weight last 48 hrs Weight 63.503 kg Physical Exam Const: COMMON NORMALS: patient oriented x3 HENMT: COMMON NORMALS: normocephalic, atraumatic, hearing grossly normal bilaterally and external ears normal HEAD & SCALP: normocephalic and atraumatic EXTERNAL EAR: Yes external ears normal Eye: COMMON NORMALS: no scleral icterus GENERAL EYE: appearance normal, both eyes and all related structures Chest: COMMONS NORMALS: normal inspection of the chest and normal palpation of entire chest wall CHEST: Yes Symmetrical chest wall rise Resp: COMMON NORMALS: normal respiratory effort, No retractions, No use of accessory muscles and clear to auscultation bilaterally EFFORT & INSPECTION: Yes symmetric chest movement AUSCULTATION: clear to auscultation bilaterally Cardio: COMMON NORMALS: regular rate, regular rhythm, S1 normal heart sound present, S2 normal heart sound present, No gallops present (Cardio), No murmurs present (Cardio), No rub (Cardio) and Peripheral pulses 2+ throughout RATE: regular rate RHYTHM: regular rhythm HEART SOUNDS: S1 normal heart sound present and S2 normal heart sound present PERIPHERAL PULSES: Peripheral pulses 2+ throughout GI: COMMON NORMALS: Normal to inspection, nondistended, normoactive bowel sounds present, Soft to palpation, non-tender, No hepatosplenomegaly present and no masses AUSCULTATION: Yes normoactive bowel sounds PALPATION: Yes Soft to palpation and Yes No hepatosplenomegaly present RECTAL EXAM: deferred Extremity: COMMON NORMALS: no clubbing, cyanosis or edema and no pedal edema Neuro: COMMON NORMALS: patient oriented x3 Data : 02/23/20 02:36 02/23/20 02:36 A&P Assessment and plan (1) Dehydration: -Secondary to noted multiple episodes of nausea, vomiting, diarrhea today. Unclear what triggered gastroenteritis -IV fluid hydration -Clear liquid diet for now and advance diet as tolerated -Afebrile, no leukocytosis, normal lactic acid, normal lipase, normal LFTs -Negative urinalysis -Order stool studies if persistent diarrhea -rapid COVID testing negative, PCR pending; isolation precautions -noted hyponatremia (Na-127). Status: Resolved (2) Chest pain: -Seems atypical from presentation -Troponins with noted flat trend, no significant delta -Telemetry monitoring, monitor vital signs -TAMIA Status: Resolved Qualifiers: Chest pain type: unspecified Qualified Code(s): R07.9 - Chest pain, unspecified (3) Hyponatremia: Hypovolemic hyponatremia. Continue IV fluids. Continue to monitor BMP Status: Acute Additional A&P Information -GI ppx with PPI -low risk for DVT -Dispo: home -Code status: FULL code Attestations Medical Necessity Statement*: Patient needs to be in hospital for management of severe dehydration. Coding Level of Care Code Acute Heavy Equipment Field Mechanic for g Fwd Exam Comprehensive Diagnoses Dehydration E86.0 Chest pain R07.9 Chest pain type: unspecified Hyponatremia E87.1
--- NOTE | 2020-02-23 14:21 | PC.NURSE ---
patient tolerating clear liquid tray. denies any nausea.
[2020-02-23] MEDS: acetaminophen 325 mg Tablet 650 MG PO (17:57)
[2020-02-24] VITALS: BP 119/46; PULSE 61; RESP 18; TEMP 36.7; O2SAT 95
[2020-02-24 04:00] VITALS: BP 129/65; PULSE 62; RESP 20; TEMP 36.3; O2SAT 97
[2020-02-24 07:32] VITALS: BP 122/49; PULSE 55; RESP 18; TEMP 36.9; O2SAT 94
[2020-02-24] MEDS: pantoprazole DR 40 mg Tablet PO (08:43)
--- NOTE | 2020-02-24 11:02 | PM.DCS ---
Discharge Providers Date of Admission: 02/22/20 23:08 Date of Discharge: February 24, 2020 Attending Provider at Admission: Nidia Arellano MD Attending Provider at Discharge: Chester Encinas MD Primary Care Provider: Nirmala Whiting MD Diagnoses at Discharge Discharge Diagnosis (1) Dehydration: Status: Resolved (2) Chest pain: Status: Resolved Qualifiers: Chest pain type: unspecified Qualified Code(s): R07.9 - Chest pain, unspecified (3) Hyponatremia: Status: Resolved (4) Acute gastroenteritis: Status: Resolved Reason for Visit Reason for Visit: cp Hospital Course Hospital Course: 64 year old female with no significant PMHx was admitted with repeated episodes of nausea, vomiting, diarrhea. During the hospital stay she was managed for acute gastroenteritis resulting in severe dehydration. She was kept on IV fluid. She was also managed for atypical chest pain. As well as for hypovolemic hyponatremia. She responded well to the medical managent and was discharged in stable condition. Rapid COVID was done which was negative. RT-PCR is awaited.We have advised her to self isolate and will update her once the report is back. She had no symptoms suggestive of COVID. Physical Exam Const: COMMON NORMALS: patient oriented x3 HENMT: COMMON NORMALS: normocephalic, atraumatic, hearing grossly normal bilaterally and external ears normal HEAD & SCALP: normocephalic and atraumatic EXTERNAL EAR: Yes external ears normal Eye: COMMON NORMALS: no scleral icterus GENERAL EYE: appearance normal, both eyes and all related structures Chest: COMMONS NORMALS: normal inspection of the chest and normal palpation of entire chest wall CHEST: Yes Symmetrical chest wall rise Resp: COMMON NORMALS: normal respiratory effort, No retractions, No use of accessory muscles and clear to auscultation bilaterally EFFORT & INSPECTION: Yes symmetric chest movement AUSCULTATION: clear to auscultation bilaterally Cardio: COMMON NORMALS: regular rate, regular rhythm, S1 normal heart sound present, S2 normal heart sound present, No gallops present (Cardio), No murmurs present (Cardio), No rub (Cardio) and Peripheral pulses 2+ throughout RATE: regular rate RHYTHM: regular rhythm HEART SOUNDS: S1 normal heart sound present and S2 normal heart sound present PERIPHERAL PULSES: Peripheral pulses 2+ throughout GI: COMMON NORMALS: Normal to inspection, nondistended, normoactive bowel sounds present, Soft to palpation, non-tender, No hepatosplenomegaly present and no masses AUSCULTATION: Yes normoactive bowel sounds PALPATION: Yes Soft to palpation and Yes No hepatosplenomegaly present RECTAL EXAM: deferred Extremity: COMMON NORMALS: no clubbing, cyanosis or edema and no pedal edema Neuro: COMMON NORMALS: patient oriented x3 Discharge Data Data Completed and Pending: Completed Studies During Hospitalization Category Date Time Status XR chest 1V [email or web address] ble [id number] Stat Exams 02/22/20 16:50 Completed Pending at discharge Category Date Time Status [facility] SARS-CoV-2 RNA Stat Lab 02/22/20 17:18 Received Vitals: Last Vital Signs Temp 98.4 F 02/24/20 07:32 Pulse 55 L 02/24/20 07:32 Resp 18 02/24/20 07:32 BP 122/49 02/24/20 07:32 Pulse Ox 94 02/24/20 07:32 Discharge Plan Discharge Patient Disposition: Home Condition: Stable Prescriptions: No Action No Known Home Medications RF: 0 Discharge Orders: Discharge Order (Routine); Ordered 02/24/20 Ordered By: Chester Encinas Referrals: Nirmala Whiting MD [Primary Care Provider] - 4-7 days (Please contact Dr. Nirmala Whiting office tomorrow to make an appointment to be seen within 4-7 days. ) Discharge Diet: Usual diet Discharge Activity: Resume usual activity Patient Instructions: Dehydration - Adult, Chest Pain (DC) Discharge Attestations Time Spent in Discharge Care*: greater than 30 min Specific Discharge Activities: Specific discharge activities: educating patient, educating and/or supporting family/caregiver, discussing with family independence case manager/social workers/dc planners, documenting/other paperwork and evaluating patient/reviewing data Quality Metrics Clinical Quality Measures During this hospital stay, did patient experience: None Coding Level of Care Code Acute Social Science Analyst for g Fwd Diagnoses Dehydration E86.0 Chest pain R07.9 Chest pain type: unspecified Hyponatremia E87.1 Acute gastroenteritis K52.9
[2020-02-24 12:16] VITALS: BP 122/49; PULSE 55; RESP 18; TEMP 36.9; O2SAT 94
--- NOTE | 2020-02-24 12:20 | PC.NURSE ---
Reviewed patient discharge with patient at this time. Patient verbalized understanding of self quarantining until her second COVIID test returns. Patient is A&Ox3. Respirations even and non-labored on room air. Patient wheel chaired to her private car. Patient is wearing a mask.
[2020-02-25 15:13] LABS: Quest SARS-CoV-2 RNA NOT DETECTED (NOT DETECTED)
== END 2020-02-24 11:30 | disposition home or self-care (01) ==
LOC: ER 23:23 → MEDSURG 23:44
PROVIDERS: Emergency Medicine; Family Medicine; Admitting Provider Family Medicine; PCP Family Medicine; Visit Provider Family Medicine
DX: E86.0 Dehydration (principal); R07.9 Chest pain, unspecified; K52.9 Noninfective gastroenteritis and colitis, unspecified; Z20.828 Contact with and (suspected) exposure to other viral communicable diseases
CPT/HCPCS: 12345; 36415; 36600; 71045; 80048; 80051; 80053; 81003; 82009; 82550; 82728; 82810; 83605; 83615; 83690; 83735; 83986; 84484; 85025; 85378; 85384; 86140; 87426; 87635; 93005; 99284; G0378; J2270; J2405; J7030